=== PATIENT | male | born 1965 | race Caucasian/White ===

== ENCOUNTER 2023-12-23 08:30 | Emergency (ER) | payer BC ==
--- NOTE | 2023-12-23 08:31 | ERPHSYRPT ---
- History of Present Illness Time Seen by Provider: 12/23/23 08:31 Historian: patient Exam Limitations: no limitations Physician History: This is a 58-year-old white male patient who arrives with his spouse by private vehicle secondary to abdominal pain nausea vomiting and diarrhea symptoms. Symptoms began at 1 AM this morning. Patient and his spouse ate at a local [employer] estaurant. Patient had pasta dish. He has had the symptoms in the past if he ate lobster. However, he did not. His had a dish containing lobster. Her meal was different than his. She is not having the same symptoms that he has. He denies chest pain. He denies shortness of breath. He describes the pain as diffuse and intermittently sharp. He has never had an abdominal surgery in the past. He has not taking any medications chronically. He has no known drug allergies. Timing/Duration: today, intermittent Activities at Onset: none Quality: sharpness Abdominal Pain Onset Location: generalized abdomen Pain Radiation: no radiation Severity of Pain-Max: moderate Severity of Pain-Current: moderate Modifying Factors: Improves With: vomiting Associated Symptoms: diarrhea, loss of appetite, nausea, vomiting, No chest pain, No shortness of breath Previous symptoms: no prior history, no recent treatment Allergies/Adverse Reactions: No Known Drug Allergies Allergy (Unverified 12/23/23 08:38) Travel Risk - International Travel Have you traveled outside of the country in past 3 weeks: No - Emerging Infectious Disease Are you exhibiting symptoms associated with any current EIDs: No - Review of Systems Constitutional: No Symptoms Eyes: No Symptoms Ears, Nose, & Throat: No Symptoms Respiratory: No Symptoms Cardiac: No Symptoms Abdominal/Gastrointestinal: Abdominal Pain, Nausea, Vomiting, Diarrhea, Appetite Changes, No Constipation Genitourinary Symptoms: No Symptoms Musculoskeletal: No Symptoms Skin: No Symptoms Neurological: No Symptoms Psychological: No Symptoms Endocrine: No Symptoms Hematologic/Lymphatic: No Symptoms Immunological/Allergic: No Symptoms All Other Systems: Reviewed and Negative - Past Medical History Pertinent Past Medical History: No - Nursing Vital Signs Nursing Vital Signs: Initial Vital Signs Blood Pressure 168/107 12/23/23 08:36 O2 Sat by Pulse Oximetry 97 12/23/23 08:36 Pain Scale Pain Intensity 5 - Physical Exam General Appearance: no apparent distress, alert, anxiety, thin Eye Exam: PERRL/EOMI, eyes nml inspection Ears, Nose, Throat Exam: normal ENT inspection, moist mucous membranes Neck Exam: normal inspection, non-tender, supple, full range of motion Respiratory Exam: normal breath sounds, lungs clear, airway intact, No chest tenderness, No respiratory distress Cardiovascular Exam: regular rate/rhythm, normal heart sounds, normal peripheral pulses Gastrointestinal/Abdomen Exam: soft, tenderness (Mild diffuse), distention (Questionable diffuse distention), guarding (Mild diffuse), No rebound Rectal Exam: not done Back Exam: normal inspection, normal range of motion, No CVA tenderness, No vertebral tenderness Extremity Exam: normal inspection, normal range of motion, pelvis stable Neurologic Exam: alert, oriented x 3, cooperative, hollock maker II-XII nml as tested, nml cerebellar function, nml station & gait, sensation nml Skin Exam: normal color, warm, dry Lymphatic Exam: No adenopathy SpO2 Interpretation: normal O2 Delivery: Room Air - Course Nursing assessment & vital signs reviewed: Yes Ordered Tests: Active Orders 24 hr Category Date Time Status IV Insertion STAT Care 12/23/23 08:42 Active ABDOMEN AND PELVIS W/0 CONTRAS [CT] Stat Exams 12/23/23 08:43 Completed AMYLASE Stat Lab 12/23/23 08:43 Completed CBC W DIFF Stat Lab 12/23/23 08:43 Completed CMP Stat Lab 12/23/23 08:43 Completed LIPASE Stat Lab 12/23/23 08:43 Completed UA W/RFX UR CULTURE Stat Lab 12/23/23 10:07 Completed Medication Summary Generic Name Dose Route Start Last Admin Trade Name Freq PRN Reason Stop Dose Admin Sodium Chloride 1,000 mls @ 999 mls/hr 12/23/23 09:58 Sodium Chloride 0.9% 1000 Ml IV 12/23/23 10:58 .Q1H1M STA Discontinued Medications Generic Name Dose Route Start Last Admin Trade Name Freq PRN Reason Stop Dose Admin Sodium Chloride 1,000 mls @ 999 mls/hr 12/23/23 08:42 12/23/23 09:58 Sodium Chloride 0.9% 1000 Ml IV 12/23/23 09:42 Infused .Q1H1M STA Infusion Sodium Chloride Confirm 12/23/23 08:50 Sodium Chloride 0.9% 1000 Ml Administered 12/23/23 08:51 Dose 1,000 mls @ ud .ROUTE .STK-MED ONE Sodium Chloride Confirm 12/23/23 10:09 Sodium Chloride 0.9% 1000 Ml Administered 12/23/23 10:10 Dose 1,000 mls @ ud .ROUTE .STK-MED ONE Morphine Sulfate 4 mg 12/23/23 08:42 12/23/23 08:51 Morphine Sulfate 4 Mg/Ml Injection IV 12/23/23 08:43 4 mg STAT ONE Administration Morphine Sulfate Confirm 12/23/23 08:49 Morphine Sulfate 4 Mg/Ml Injection Administered 12/23/23 08:50 Dose 4 mg .ROUTE .STK-MED ONE Ondansetron HCl 4 mg 12/23/23 08:42 12/23/23 08:51 Ondansetron Hcl 4 Mg/2 Ml Vial IV 12/23/23 08:43 4 mg STAT ONE Administration Ondansetron HCl Confirm 12/23/23 08:49 Ondansetron Hcl 4 Mg/2 Ml Vial Administered 12/23/23 08:50 Dose 4 mg .ROUTE .STK-MED ONE Pantoprazole Sodium 40 mg 12/23/23 08:57 12/23/23 09:38 Pantoprazole 40 Mg Vial IV 12/23/23 08:58 40 mg STAT ONE Administration Pantoprazole Sodium Confirm 12/23/23 09:35 Pantoprazole 40 Mg Vial Administered 12/23/23 09:36 Dose 40 mg IV .STK-MED ONE Lab/Rad Data: Laboratory Result Diagrams 12/23/23 08:43 12/23/23 08:43 Laboratory Results 12/23/23 12/23/23 12/23/23 Range/Units 10:07 09:00 08:43 WBC (4.23-9.07) x10^3/uL RBC (4.63-6.08) x10^6/uL Hgb (13.7-17.5) g/dL Hct (40.1-51.0) % MCV (79.0-92.2) fL MCH (25.7-32.2) pg MCHC (32.3-36.5) g/dL RDW (11.6-14.4) % Plt Count (163-337) x10^3/uL MPV (9.4-12.4) fL Gran % (34.0-67.9) % Immature Gran % (Auto) (0.001-0.429) % Nucleat RBC Rel Count (0.00-0.2) % Eos # (Auto) (0.04-0.54) x10^3/uL Immature Gran # (Auto) (0.001-0.031) x10^3u/L Absolute Lymphs (auto) (1.32-3.57) x10^3/uL Absolute Monos (auto) (0.30-0.82) x10^3/uL Absolute Nucleated RBC (0.00-0.012) x10^3u/L Lymphocytes % (21.8-53.1) % Monocytes % (5.3-12.2) % Eosinophils % (0.8-7.0) % Basophils % (0.2-1.2) % Absolute Granulocytes (1.78-5.38) x10^3/uL Basophils # (0.01-0.08) x10^3/uL Sodium 141 (135-145) mmol/L Potassium 3.6 (3.5-5.1) mmol/L Chloride 107 (98-107) mmol/L Carbon Dioxide 23 (22-30) mmol/L Anion Gap 14.2 (5-15) MEQ/L BUN 24 H (9-20) mg/dL Creatinine 0.94 (0.66-1.25) mg/dL Estimated GFR 92.8 ML/MIN Glucose 169 H (74-106) mg/dL Calcium 10.1 (8.4-10.2) mg/dL Total Bilirubin 0.70 (0.2-1.3) mg/dL AST 27 (17-59) U/L ALT 37 (0-50) U/L Alkaline Phosphatase 71 (38-126) U/L Serum Total Protein 7.9 (6.3-8.2) g/dL Albumin 4.6 (3.5-5.0) g/dL Amylase 60 (30-110) U/L Lipase 37 (23-300) U/L Urine Color Yellow (Yellow) Urine Appearance Clear (Clear) Urine pH 7.0 (4.6-8.0) Ur Specific [place] 1.025 (1.005-1.030) Urine Protein Trace A (Negative) Urine Glucose (UA) 500 A (Negative) mg/dL Urine Ketones 15 A (Negative) Urine Blood Negative (Negative) Urine Nitrite Negative (Negative) Urine Bilirubin Negative (Negative) Urine Urobilinogen 1.0 A (0.2) mg/dL Ur Leukocyte Esterase Negative (Negative) U Hyaline Cast (Auto) NONE SEEN (0-2) /LPF Urine Microscopic RBC 0-2 (0-5) /HPF Urine Microscopic WBC 0-2 (0-5) /HPF Ur Epithelial Cells None Seen (None Seen) /HPF Urine Bacteria None Seen (None Seen) /HPF Urine Culture Reflexed NO (NO) Influenza Type A Ag NEGATIVE (NEGATIVE) Influenza Type B Ag NEGATIVE (NEGATIVE) RSV (PCR) NEGATIVE (NEGATIVE) SARS-CoV-2 (PCR) NEGATIVE (NEGATIVE) 12/23/23 Range/Units 08:43 WBC 10.8 H (4.23-9.07) x10^3/uL RBC 4.99 (4.63-6.08) x10^6/uL Hgb 15.3 (13.7-17.5) g/dL Hct 45.1 (40.1-51.0) % MCV 90.4 (79.0-92.2) fL MCH 30.7 (25.7-32.2) pg MCHC 33.9 (32.3-36.5) g/dL RDW 12.9 (11.6-14.4) % Plt Count 203 (163-337) x10^3/uL MPV 11.3 (9.4-12.4) fL Gran % 88.7 H (34.0-67.9) % Immature Gran % (Auto) 0.4 (0.001-0.429) % Nucleat RBC Rel Count 0.0 (0.00-0.2) % Eos # (Auto) 0 L (0.04-0.54) x10^3/uL Immature Gran # (Auto) 0.04 H (0.001-0.031) x10^3u/L Absolute Lymphs (auto) 0.83 L (1.32-3.57) x10^3/uL Absolute Monos (auto) 0.31 (0.30-0.82) x10^3/uL Absolute Nucleated RBC 0.00 (0.00-0.012) x10^3u/L Lymphocytes % 7.7 L (21.8-53.1) % Monocytes % 2.9 L (5.3-12.2) % Eosinophils % 0.0 L (0.8-7.0) % Basophils % 0.3 (0.2-1.2) % Absolute Granulocytes 9.62 H (1.78-5.38) x10^3/uL Basophils # 0.03 (0.01-0.08) x10^3/uL Sodium (135-145) mmol/L Potassium (3.5-5.1) mmol/L Chloride (98-107) mmol/L Carbon Dioxide (22-30) mmol/L Anion Gap (5-15) MEQ/L BUN (9-20) mg/dL Creatinine (0.66-1.25) mg/dL Estimated GFR ML/MIN Glucose (74-106) mg/dL Calcium (8.4-10.2) mg/dL Total Bilirubin (0.2-1.3) mg/dL AST (17-59) U/L ALT (0-50) U/L Alkaline Phosphatase (38-126) U/L Serum Total Protein (6.3-8.2) g/dL Albumin (3.5-5.0) g/dL Amylase (30-110) U/L Lipase (23-300) U/L Urine Color (Yellow) Urine Appearance (Clear) Urine pH (4.6-8.0) Ur Specific [place] (1.005-1.030) Urine Protein (Negative) Urine Glucose (UA) (Negative) mg/dL Urine Ketones (Negative) Urine Blood (Negative) Urine Nitrite (Negative) Urine Bilirubin (Negative) Urine Urobilinogen (0.2) mg/dL Ur Leukocyte Esterase (Negative) U Hyaline Cast (Auto) (0-2) /LPF Urine Microscopic RBC (0-5) /HPF Urine Microscopic WBC (0-5) /HPF Ur Epithelial Cells (None Seen) /HPF Urine Bacteria (None Seen) /HPF Urine Culture Reflexed (NO) Influenza Type A Ag (NEGATIVE) Influenza Type B Ag (NEGATIVE) RSV (PCR) (NEGATIVE) SARS-CoV-2 (PCR) (NEGATIVE) - Progress Progress: improved, pain not gone completely, re-examined Progress Note: 12/23/23 09:07 My medical decision making and the assignment of moderate complexity to this patient's medical issue today is based on review of the patient's past medical history, review the patient's medication list, review of the patient's drug allergies, history present illness and physical findings on examination. The workup in this patient includes placement of intravenous line, infusion of normal saline solution, infusion of antiemetic, infusion of pain medication, infusion of Protonix, CBC, CMP, amylase, lipase, urinalysis, CT scan of the abdomen and pelvis. Differential diagnosis includes but is not limited to food poisoning, gastritis, gastroenteritis, colitis, diverticulitis, pancreatitis, cholecystitis/cholelithiasis, appendicitis 12/23/23 10:31 I interpreted the patient's laboratory data results. Based on the laboratory data results, the patient does not have any acute, emergent medical issue at this time. He was mildly dehydrated. There is mildly elevated blood sugar and there is protein and glucose in his urine. I informed him of these findings. The CT scan of the abdomen pelvis was interpreted by the radiologist and I reviewed the impression. The impression states sigmoid colonic diverticulosis without evidence for diverticulitis. There is normal appendix. There is normal gallbladder. There is prostamegaly and hepatomegaly. There is mild aortic intimal atherosclerotic calcifications. These results were reviewed with the patient. Counseled pt/family regarding: lab results, diagnosis, need for follow-up, rad results Medical Desision Making - Independent Historian Additional History obtained from: Spouse - Diagnostic Testing Diagnostic test were ordered, analyzed, and reviewed by me: Yes Radiological Interpretation: Reviewed by me, Teleradiologist Report - Risk of complications The pt has a mod risk of morbidity or mortality based on: Need for prescription drug management - Departure Departure Disposition: Home Clinical Impression: Mild dehydration, Vomiting and diarrhea, Hepatomegaly, Enlarged prostate, Proteinuria, Hyperglycemia, Glucose found in urine on examination Condition: Stable Critical Care Time: No Referrals: TOBI CASTRO [Primary Care Provider] - Follow up/PCP as directed Additional Instructions: Drink plenty of clear liquids. Advance your diet slowly. Avoid fatty greasy spicy foods. Call your primary care provider on 12/25/2023, to make arrangements for follow-up appointment to be seen in the next 3 to 5 days. Discussed with them the findings of enlarged prostate, protein and glucose in your urine. Prescriptions: Ondansetron ODT 4 MG [Zofran Odt 4 mg] 4 mg PO Q6H PRN PRN #10 tablet PRN Reason: Vomiting
[2023-12-23 08:47] VITALS: RESP 18; TEMP 97
[2023-12-23] MEDS ORDERED: MORPHINE SULFATE 4 MG INJ ONE ×2 (08:49→11:04)
[2023-12-23] MEDS ORDERED: Zofran 4 MG/2 ML VIAL ONE (08:49)
[2023-12-23] MEDS ORDERED: Sodium Chloride 0.9% 1000 ML 1,000 ML ONE ×2 (08:50→10:09)
[2023-12-23] MEDS: Sodium Chloride 0.9% 1000 ML 1,000 ML IV STA ×2 (08:51→10:57)
[2023-12-23] MEDS: MORPHINE SULFATE 4 MG INJ IV ONE ×2 (08:51→11:05)
[2023-12-23] MEDS: Zofran 4 MG/2 ML VIAL IV ONE (08:51)
[2023-12-23 09:07] LABS: Absolute Neutrophil Ct (ANC) 9.62 x10^3/uL (1.78-5.38); BASOPHIL % 0.3 % (0.2-1.2); Basophil (Absolute #) 0.03 x10^3/uL (0.01-0.08); Eosinophil (Absolute #) 0 x10^3/uL (0.04-0.54); Hematocrit 45.1 % (40.1-51.0); Hemoglobin 15.3 g/dL (13.7-17.5); IMMATURE GRAN # 0.04 x10^3u/L (0.001-0.031); IMMATURE GRAN % 0.4 % (0.001-0.429); Lymphocyte (Absolute #) 0.83 x10^3/uL (1.32-3.57); Lymphocytes % 7.7 % (21.8-53.1); Mean Cell Volume 90.4 fL (79.0-92.2); Mean Corpuscular Hemoglobin 30.7 pg (25.7-32.2); Mean Corpuscular Hgb Concent. 33.9 g/dL (32.3-36.5); Mean Platelet Volume 11.3 fL (9.4-12.4); Monocyte (Absolute #) 0.31 x10^3/uL (0.30-0.82); Monocytes % 2.9 % (5.3-12.2); Neutrophil % 88.7 % (34.0-67.9); Platelet Count 203 x10^3/uL (163-337); Red Blood Count 4.99 x10^6/uL (4.63-6.08); Red Cell Distribution Width 12.9 % (11.6-14.4); White Blood Count 10.8 x10^3/uL (4.23-9.07)
[2023-12-23 09:23] LABS: ALBUMIN 4.6 g/dL (3.5-5.0); ANION GAP 14.2 MEQ/L (5-15); BILIRUBIN,TOTAL 0.7 mg/dL (0.2-1.3); Calcium 10.1 mg/dL (8.4-10.2); Creatinine 1 0.94 mg/dL (0.66-1.25); EST GLOMERULAR FILTRATION RATE 92.8 ML/MIN; Potassium 3.6 mmol/L (3.5-5.1); Total Protein 7.9 g/dL (6.3-8.2)
[2023-12-23] MEDS ORDERED: PROTONIX 40 MG IV IV ONE (09:35)
[2023-12-23] MEDS: PROTONIX 40 MG IV IV ONE (09:38)
[2023-12-23 09:43] LABS: INFLUENZA A NEGATIVE (NEGATIVE); INFLUENZA B NEGATIVE (NEGATIVE); RESPIRATORY SYNCTIAL VIRUS NEGATIVE (NEGATIVE); SARS-CoV-2 Xpert Express NEGATIVE (NEGATIVE)
[2023-12-23 10:08] VITALS: PULSE 68; O2SAT 100
--- NOTE | 2023-12-23 10:16 | XRAY ---
CLINICAL HISTORY: ABD pain; N/V/D COMPARISON: None TECHNIQUE: A CT scan of the abdomen and pelvis was performed without IV contrast. Bowel loops are opacified by prior administration of oral contrast. Coronal and sagittal reconstructive images were also obtained. FINDINGS: The scanned chest cuts showed mild fibroatelectatic changes and mosaic attenuation. Abdomen: The liver is enlarged and measures 19 cm. No focal or diffuse parenchymal abnormality. The intrahepatic biliary radicals and the bile ducts are normal. The pancreas showed fatty atrophy. The spleen, and adrenal glands are unremarkable. The kidneys are unremarkable. They are normal in size and shape. No calculi or hydronephrosis. The gallbladder is normal. No pericholecystic collection or radio-dense calculi in the gall bladder. The ascending colon, the transverse colon, the descending colon, visualized small bowel loops are unremarkable. A few small right iliac mesenteric Lymph nodes. There is no evidence of significant enlargement of the retroperitoneal lymph nodes. Small fat-containing umbilical hernia. The appendix is normal. Mild aortic intimal atherosclerotic calcifications. Pelvis: The urinary bladder is unremarkable. Multiple diverticular outpouchings were seen in sigmoid colon, with no evidence of diverticulitis. The prostate is enlarged, it measures 4.3x5.3x4 cm, and its estimated volume is 47.4 ml. No evidence of pelvic lymphadenopathy. The osseous structures in the pelvis, lower rib cage, and lumbar spine show no abnormality. No lytic or sclerotic bone lesions. IMPRESSION: 1. Sigmoid colonic diverticulosis, with no evidence of diverticulitis. 2. Prostatomegaly. 3. Hepatomegaly. Electronically Signed by: Shoshana Martinez MD. (12/23/2023 10:13:41 EDT)
[2023-12-23 10:18] LABS: Appearance Clear (Clear); Bacteria None Seen /HPF (None Seen); Bilirubin Negative (Negative); Blood Negative (Negative); Epithelial Cells None Seen /HPF (None Seen); Glucose, Urine 500 mg/dL (Negative); Hyaline Casts NONE SEEN /LPF (0-2); Ketones 15 (Negative); Leukocyte Esterase Negative (Negative); Nitrite Negative (Negative); Protein,Urine Dip Trace (Negative); RBC 0-2 /HPF (0-5); Specific Gravity 1.025 (1.005-1.030); WBC 0-2 /HPF (0-5)
[2023-12-23 10:29] LABS: ADD URINE CULTURE? NO (NO)
[2023-12-23 11:47] VITALS: BP 183/100
== END 2023-12-23 11:48 | disposition home or self-care (01) ==
LOC: ED 08:30
DX: E86.0 Dehydration (principal); R11.2 Nausea with vomiting, unspecified; R19.7 Diarrhea, unspecified; R16.0 Hepatomegaly, not elsewhere classified; N40.0 Benign prostatic hyperplasia without lower urinary tract symptoms; R80.9 Proteinuria, unspecified; R73.9 Hyperglycemia, unspecified; R81 Glycosuria; R10.9 Unspecified abdominal pain
CPT/HCPCS: 0241U; 36000; 36415; 74176; 80053; 81001; 82150; 83690; 85025; 96360; 96374; 96375; 96376; 99284; J2270; J2405